=== PATIENT | female | born 1985 | race Caucasian/White ===

== ENCOUNTER 2018-06-21 05:50 | Day surgery (SDC) | payer OTHER ==
[2018-06-21] MEDS ORDERED: SOD CHLORIDE 0.9% 1,000 ML IV (06:00)
[2018-06-21] MEDS ORDERED: CEFAZOLIN 2 GM/50 ML (PMX) 50 ML IVPB (06:00)
[2018-06-21 06:50] LABS: ADD MAN DIFF? NO
[2018-06-21 06:53] LABS: BASOPHIL # 0.1 10^3/ul (0.0-0.1); BASOPHILS % 0.4 % (0.0-2.0); EOSINOPHILS # 0.4 10^3/ul (0.0-0.5); HEMATOCRIT 39.8 % (37.0-47.0); HEMOGLOBIN 12.7 g/dl (12.0-16.0); LYMPHOCYTES # 2.1 10^3/ul (0.8-2.9); LYMPHOCYTES % 16.6 % (15.0-51.0); MEAN CORPUSCULAR HEMOGLOBIN 29.7 pg (29.0-33.0); MEAN CORPUSCULAR HGB CONC 31.9 g/dl (32.0-37.0); MEAN CORPUSCULAR VOLUME 93.2 fl (82.0-101.0); MEAN PLATELET VOLUME 10.6 fl (7.4-10.4); MONOCYTES % 7.8 % (0.0-11.0); NEUTROPHILS % 71.8 % (39.0-77.0); PLATELET COUNT 251 10^3/UL (140-415); RED BLOOD COUNT 4.27 10^6/ul (4.20-5.40); RED CELL DISTRIBUTION WIDTH 12.9 % (11.5-14.5)
[2018-06-21 06:53] LABS: WHITE BLOOD COUNT 12.5 10^3/ul (4.8-10.8)
[2018-06-21 06:59] LABS: HOLD TRANSMISSIONS 1
[2018-06-21 07:12] LABS: INR 0.88; PARTIAL THROMBOPLASTIN TIME 27.5 Sec (23.0-35.0); PT RATIO 0.9
[2018-06-21 07:18] LABS: ALANINE AMINOTRANSFERASE 20 IU/L (13-69); ALBUMIN 3.5 g/dl (3.3-4.9); ALKALINE PHOSPHATASE 53 IU/L (42-121); ANION GAP 6 (5-13); ASPARTATE AMINO TRANSFERASE 20 IU/L (15-46); BILIRUBIN,INDIRECT 0.3 mg/dl (0-1.1); BILIRUBIN,TOTAL 0.3 mg/dl (0.2-1.3); BLOOD UREA NITROGEN 9 mg/dl (7-20); CALCIUM 8.6 mg/dl (8.4-10.2); CARBON DIOXIDE 21 mmol/L (21-31); CHLORIDE 113 mmol/L (97-110); CREATININE 0.62 mg/dl (0.44-1.00); Estimated GFR > 60 mL/min (>60); GLUCOSE 103 mg/dl (70-220); POTASSIUM 4.9 mmol/L (3.5-5.1); SODIUM 140 mmol/L (135-144); TOTAL PROTEIN 6.4 g/dl (6.1-8.1)
[2018-06-21] MEDS: BUPIVACAINE 0.25% (MPF) 30 ML INJ (08:20)
[2018-06-21] MEDS ORDERED: CEFAZOLIN 1 GM INJ (08:25)
[2018-06-21] MEDS ORDERED: PROPOFOL 20 ML (08:46)
[2018-06-21] MEDS ORDERED: ETOMIDATE 20 MG INJ (08:46)
[2018-06-21] MEDS ORDERED: ONDANSETRON 4 MG INJ ×2 (08:46→09:01)
[2018-06-21] MEDS ORDERED: LIDOCAINE 2% (SDV) 5 ML INJ (08:46)
[2018-06-21] MEDS ORDERED: ONDANSETRON 4 MG INJ IV (09:00)
[2018-06-21] MEDS ORDERED: HYDROmorphONE 1 MG/5 ML IV SYRINGE IV (09:00)
[2018-06-21] MEDS ORDERED: HYDROCODONE/APAP (5/325) TAB PO (09:00)
[2018-06-21] MEDS ORDERED: METOCLOPRAMIDE 10 MG INJ IV (09:00)
[2018-06-21] MEDS ORDERED: FAMOTIDINE 20 MG INJ (09:11)
[2018-06-21] MEDS: FAMOTIDINE 20 MG INJ IV (09:14)
== END 2018-06-21 10:25 | disposition home or self-care (01) ==
LOC: SDS 05:50
DX: D17.1 Benign lipomatous neoplasm of skin and subcutaneous tissue of trunk (principal)
CPT/HCPCS: 14001; 80053; 84703; 85025; 85610; 85730; 88307